=== PATIENT | female | born 1990 | race Caucasian/White ===

== ENCOUNTER 2016-07-27 06:08 | Day surgery (SDC) | payer MEDICAID ==
[2016-07-27] MEDS ORDERED: LACTATED RINGERS 1,000 ML ONE (06:54)
[2016-07-27] MEDS ORDERED: ceFAZolin SODIUM 1 GM VIAL ONE (06:55)
[2016-07-27] MEDS ORDERED: SODIUM CHL 0.9% 100ML MINI-BAG 100 ML IVPB ONE (06:55)
[2016-07-27] MEDS ORDERED: METOCLOPRAMIDE HCL INJ 10 MG/2 ML VIAL ONE (07:00)
[2016-07-27] MEDS ORDERED: PROPOFOL 200 MG/20 ML VIAL IV ONE (07:00)
[2016-07-27] MEDS ORDERED: BUPIVACAINE 0.25% W/EPI 50 ML VIAL INJ ONE (07:24)
[2016-07-27] MEDS ORDERED: fentaNYL CITRATE INJ 50 MCG/ML AMP ONE (07:48)
[2016-07-27] MEDS ORDERED: LIDOCAINE 2 % GEL 5 ML TUBE TOP ONE (07:49)
[2016-07-27 10:59] VITALS: O2SAT 97
[2016-07-27] MEDS ORDERED: HYDROcodone 5MG/APAP 325MG 1 EA TAB ONE (11:00)
--- NOTE | 2016-07-27 11:17 | OP ---
DATE OF PROCEDURE: 07/27/16 PREOPERATIVE DIAGNOSIS: 1. Umbilical hernia, reducible. POSTOPERATIVE DIAGNOSIS: 1. Umbilical hernia, reducible, with a ventral hernia, also reducible. PROCEDURE: 1. Repair of ventral and umbilical hernia with Surgimesh Onlay graft. SURGEON: Rubens Simons MD. ORACLE APPLICATION CONSULTANT: None. ANESTHESIA: General laryngeal mask anesthesia and local infiltration of 0.25% Marcaine with epinephrine. INDICATION: The patient is a 26-year-old female who was found to have a tender mass at her umbilicus. After the risks, benefits and alternatives to repair were discussed, the patient was brought to the Surgical Suite today for hernia repair under general anesthesia. FINDINGS: The patient had approximately 1 cm umbilical defect with a small amount of omentum within it. However, approximately 1.5 cm above that, she had a 1.5 by 1 cm hernia in the midline also with omentum in it. The two defects were connected and repaired as a single unit approximately 4.5 cm in length. PROCEDURE: After adequate general laryngeal mask anesthesia was obtained, the patient was prepped and draped in the usual sterile manner. At this point, a surgical time-out was taken. An infraumbilical incision was made first with infiltration of anesthesia, then with a sharp knife. Dissection was carried down through the skin and subcutaneous tissue to the midline fascia using electrocautery and blunt dissection. The umbilicus was dissected free circumferentially. It was then transected at the neck at the level of the fascia. The omentum was reduced and when this was done, the subcutaneous fat circumferentially was dissected free to allow sewing of the mesh Onlay graft. With the superior dissection, the other hernia was identified. It was likewise reduced below the level of the fascia. When this was done, a hemostat was passed from under the fascia from the ventral hernia to the umbilical hernia and over this. Electrocautery was used to divide the fascia. When this was done, the defect was closed with a running #1 PDS suture from above and below. When this was tightened and tied, the wound was irrigated with saline. Hemostasis was noted to be adequate. The fat was then dissected free circumferentially to allow the placement of a 10 cm by 5 cm oval Onlay Surgimesh graft. It was placed and then sutured down using interrupted 2-0 Prolene and 2-0 Vicryl sutures. When this was done, again, the wound was irrigated with saline. Hemostasis was noted to be adequate. The umbilicus was then sutured down using a 2-0 Prolene [id number] suture. This was sutured down to the fascia and the graft. When this was done, the wound was gain irrigated with saline. A 50 mm round MARCIN drain was then placed into the wound from below. It was sutured in place with a 3-0 Nylon suture. The subcutaneous was then reapproximated with interrupted 3-0 Vicryl sutures. Skin edges were approximated with skin stapler. Sterile pressure dressing was applied. Abdominal binder was applied. The patient was awakened and taken to the Recovery Room in stable condition. Estimated blood loss was approximately 25 to 50 mL. All sponge, needle and instrument counts were correct. #[id number] [facility]
[2016-07-27 11:37] VITALS: BP 116/72; TEMP 99.9
[2016-07-27] MEDS ORDERED: ONDANSETRON INJ 4 MG/2 ML VIAL ONE (11:57)
== END 2016-07-27 12:10 | disposition home or self-care (01) ==
LOC: AMB 06:08
PROVIDERS: ATTEND Surgery
DX: K42.9 Umbilical hernia without obstruction or gangrene (principal); K43.9 Ventral hernia without obstruction or gangrene
CPT/HCPCS: 00830; 49560; 49568; 49585; 80048; 81025; 85025; C1781; J0690; J2405; J2765; J3010; J3490; J7050; J7120

== ENCOUNTER → 2018-01-22 | Outpatient (CLI) | payer MEDICAID | LOC: YCFC.O 14:34 | DX: R63.5 Abnormal weight gain (principal); R53.83 Other fatigue ==

== ENCOUNTER → 2018-09-02 | Outpatient (CLI) | payer MEDICAID, OTHER | LOC: SL 19:17 | PROVIDERS: ATTEND Nurse Practitioner Family | DX: E66.9 Obesity, unspecified (principal); R06.83 Snoring; R53.83 Other fatigue ==

== ENCOUNTER → 2018-09-09 | Outpatient (CLI) | payer OTHER | LOC: SL 19:18 | PROVIDERS: ATTEND Nurse Practitioner Family | DX: R06.83 Snoring (principal); E66.9 Obesity, unspecified; R53.83 Other fatigue ==

== ENCOUNTER 2018-10-05 14:52 | Emergency (ER) | payer OTHER ==
[2018-10-05 15:23] VITALS: O2SAT 100
--- NOTE | 2018-10-05 15:38 | ED.PDOC ---
History of Present Illness - General Chief Complaint: Abdominal Pain Time Seen by Provider: 10/05/18 15:32 Source: patient Exam Limitations: no limitations - History of Present Illness Initial Comments: Patient presents with abdominal pain for 4 days. It is umbilical and LUQ with radiation to the back. It is constant and aching. It gets worse just after eating. Denies previous episodes. She has had associated nausea and some diarrhea. Last BM was this morning. Las meal 2 hours ago. She has had a mesh hernia repair, BTL, and hysterectomy. No other complaints. Timing/Duration: other - 4 days Severity: moderate Improving Factors: rest Worsening Factors: eating Associated Symptoms: other - see HPI Allergies/Adverse Reactions: Allergies NO KNOWN ALLERGY Allergy (Verified 02/10/16 13:29) Home Medications: Ambulatory Orders Ketorolac Tromethamine [Toradol Tabs] 10 mg PO Q6HRS PRN #14 tab 10/05/18 Review of Systems - Review of Systems Constitutional: States: no symptoms reported EENTM: States: no symptoms reported Respiratory: States: no symptoms reported Cardiology: States: no symptoms reported Gastrointestinal/Abdominal: States: see HPI Genitourinary: States: no symptoms reported Musculoskeletal: States: no symptoms reported Skin: States: no symptoms reported Neurological: States: no symptoms reported Endocrine: States: no symptoms reported Hematologic/Lymphatic: States: no symptoms reported Past Medical History (General) - Patient Medical History Hx Asthma: Yes Hx Congestive Heart Failure: No Hx Diabetes: No Hx Renal Disease: No Hx Cancer: Yes - cervical Hx MRSA: No - Vaccination History Hx Tetanus, Diphtheria Vaccination: No Hx Influenza Vaccination: No Hx Pneumococcal Vaccination: No - Social History Hx Tobacco Use: Yes Hx Alcohol Use: No Hx Substance Use: No - Female History Hx Last Menstrual Period: 12/18/15 Patient : No Expected Date of Delivery:: 02/07/14 Family Medical History - Family History Mother Name: Holley Mehta Age (years): 50 Living Status: Still Living Hx Family Asthma: No Hx Family Congestive Heart Failure: Yes Hx Family Hypertension: No Hx Family Stroke: No Hx Family Diabetes: Yes Hx Family Cancer: No Hx Family;Other: Kidney failure- grandmother Father Name: Angelo Mehta Jr. Age (years): 57 Living Status: Still Living Hx Family Asthma: No Hx Family Congestive Heart Failure: Yes Hx Family Hypertension: Yes Hx Family Stroke: No Hx Family Diabetes: No Hx Family Cancer: Yes Brother Name: Rashad bustillos; Abdoulaye mehta; Constantino Mehta Age (years): 35; 26; 34 Living Status: Still Living Hx Family Asthma: No Hx Family Congestive Heart Failure: No Hx Family Hypertension: No Hx Family Stroke: No Hx Family Diabetes: No Hx Family Cancer: No Maternal Grandparents Name: Radha Bush Age (years): 66 Living Status: Age at (years of age): 66 Cause of : Kidney failure Hx Family Asthma: No Hx Family Congestive Heart Failure: Yes Hx Family Hypertension: Yes Hx Family Stroke: No Hx Family Diabetes: No Hx Family Cancer: No Physical Exam - Physical Exam General Appearance: Alert Eye Exam: bilateral normal Ears, Nose, Throat: normal ENT inspection Neck: non-tender, full range of motion, supple Respiratory: lungs clear, normal breath sounds Cardiovascular/Chest: normal peripheral pulses, regular rate, rhythm Gastrointestinal/Abdominal: normal bowel sounds, soft, tenderness - TTP over umbilical area and RUQ. Negative Jin's sign. Back Exam: normal inspection, no CVA tenderness Extremity: normal range of motion, non-tender, normal inspection Neurologic: no motor/sensory deficits, alert, normal mood/affect, oriented x 3 Skin Exam: normal color Lymphatic: no adenopathy Progress - Progress Progress: 10/05/18 17:52 Laboratory Tests 10/05/18 10/05/18 10/05/18 15:44 15:44 15:44 WBC 7.7 RBC 4.20 Hgb 13.1 Hct 38.9 MCV 92.7 MCH 31.3 H MCHC 33.7 RDW 12.4 Plt Count 417 H MPV 7.7 Absolute Neuts (auto) 4.70 Absolute Lymphs (auto) 1.90 Absolute Monos (auto) 0.50 Absolute Eos (auto) 0.50 H Absolute Basos (auto) 0.00 Neutrophils % 61.3 Lymphocytes % 25.1 Monocytes % 6.2 Eosinophils % 6.8 H Basophils % 0.6 Sodium 138 Potassium 3.8 Chloride 103 Carbon Dioxide 26 Anion Gap 12.8 BUN 9 Creatinine 0.43 L BUN/Creatinine Ratio 20.9 H Random Glucose 106 H Serum Osmolality 274.8 L Calcium 8.9 Total Bilirubin 0.3 AST 21 ALT 23 Alkaline Phosphatase 142 H Serum Total Protein 7.2 Albumin 3.9 Globulin 3.3 Albumin/Globulin Ratio 1.[address] ab/pelvis was negative for acute disease. Likely is biliary colic. Instructed patient to follow up with Dr. Simons next week.. Toradol 30 mg IM x one given in the E.R. Care instructions given. E.R. warnings given. Questions were elicited and answered. Patient voiced understanding and agreement with the plan Departure - Departure Clinical Impression: Biliary colic Disposition: Discharge to Home or Self Care Condition: Good Departure Forms: ED Discharge - Pt. Copy, Patient Portal Self Enrollment Instructions: DI for Abdominal Pain-Adult Diet: low fat, low cholesterol Activity: increase activity as tolerated Referrals: Edilia Heck NP [Primary Care Provider] - 1-2 Weeks Prescriptions: Ketorolac Tromethamine [Toradol Tabs] 10 mg PO Q6HRS PRN #14 tab PRN Reason: Pain Home Medications: Ambulatory Orders Ketorolac Tromethamine [Toradol Tabs] 10 mg PO Q6HRS PRN #14 tab 10/05/18 Additional Instructions: Eat low fat meals. Take medication as prescribed. Call Dr. Simons on Monday and get scheduled for further evaluation of your gall bladder.
--- NOTE | 2018-10-05 17:36 | CT ---
EXAM: Abdomen/Pelvis w/Contrast CLINICAL INDICATION: Abdominal pain. COMPARISON: 01/04/2016 TECHNIQUE: The CT scan was done using contiguous axial 5 mm postcontrast sections through the abdomen and pelvis including IV contrast. This exam was performed according to our departmental dose-optimization program, which includes automated exposure control, adjustment of the mA and/or kV according to patient size and/or use of iterative reconstruction technique. FINDINGS: The visualized lung bases are clear. There is redemonstration of a low-density lesion with peripheral nodular enhancement, consistent with an hemangioma in the posterior right lobe of the liver unchanged from the previous study measuring 2.0 x 2.5 cm. The liver is otherwise unremarkable. The adrenal glands, kidneys, spleen, and pancreas as well as the gallbladder are unremarkable. The aorta is normal in caliber. There are no dilated loops of small bowel. There is no free air, free fluid, or abscess. The appendix is normal, seen best on coronal images. The uterus is surgically absent. IMPRESSION: No evidence of an acute intra-abdominal process. Electronically signed by: Inderjit Lopez MD 10/05/2018 5:33 PM CDT
[2018-10-05] MEDS ORDERED: KETOROLAC TROMETHAMINE INJ 30 MG/ML VIAL IM ONE (17:52)
[2018-10-05 18:09] VITALS: BP 136/80; TEMP 97
== END 2018-10-05 18:17 | disposition home or self-care (01) ==
LOC: ER 14:52
DX: K80.20 Calculus of gallbladder without cholecystitis without obstruction (principal); J45.909 Unspecified asthma, uncomplicated; Z87.891 Personal history of nicotine dependence; Z85.41 Personal history of malignant neoplasm of cervix uteri; Z98.890 Other specified postprocedural states; Z87.19 Personal history of other diseases of the digestive system; Z90.710 Acquired absence of both cervix and uterus
CPT/HCPCS: 36415; 74177; 80053; 83690; 85025; J1885

== ENCOUNTER → 2018-10-11 | Outpatient (CLI) | payer OTHER ==
--- NOTE | 2018-10-11 12:36 | US ---
EXAM DESCRIPTION: Abdomen,Complete CLINICAL HISTORY: RT UPPER QUADRANT PAIN COMPARISON: Previous study February 10, 2016 ultrasound liver, previous CT abdomen October 05, 2018 TECHNIQUE: Complete abdominal ultrasound FINDINGS: Visualized portions of the pancreas are unremarkable. No peripancreatic fluid. Bowel gas obscures some areas. Normal caliber of the aorta. Normal appearance of the inferior vena cava. Focally echogenic lesion in the upper right lobe of the liver measures 2.3 cm consistent with benign cavernous hemangioma. Liver parenchyma is otherwise homogeneous in texture with normal echogenicity. No liver mass or intrahepatic bile duct dilatation. No liver surface irregularity. Normal appearance of hepatic veins and portal vein. Gallbladder appears normal with no intraluminal stones. No gallbladder wall thickening. Common bile duct is normal in caliber measuring 3.4 mm. The right kidney measures 9.8 cm in length. Normal renal cortical echogenicity. The renal cortical thickness appears normal. No right renal mass, shadowing stone or cyst. There is no hydronephrosis. Spleen is normal in size. No focal splenic lesion. The left kidney measures 10.9 cm in length. Normal renal cortical echogenicity. The renal cortical thickness appears normal. No left renal mass, shadowing stone or cyst. There is no hydronephrosis. IMPRESSION: Benign-appearing hyperechoic lesion in the upper right lobe of the liver 2.3 cm consistent with hemangioma. Normal sonographic appearance of the gallbladder and common bile duct. Electronically signed by: Noah Garcia MD 10/11/2018 12:33 PM CDT
== END ==
LOC: US 08:37
PROVIDERS: ATTEND Surgery
DX: R10.11 Right upper quadrant pain (principal)

== ENCOUNTER 2018-10-16 19:57 | Emergency (ER) | payer OTHER ==
[2018-10-16 20:14] VITALS: O2SAT 99
[2018-10-16] MEDS ORDERED: KETOROLAC TROMETHAMINE INJ 60 MG/2 ML VIAL IM ONE (20:22)
--- NOTE | 2018-10-16 20:25 | ED.PDOC ---
History of Present Illness - General Chief Complaint: GI Problem Stated Complaint: "gallbladder attack" Time Seen by Provider: 10/16/18 20:20 Information Source: patient Additional Information: SHE ATE SOME CHICKEN IN [place] AND NOW HAS RUQ PAIN, DENIES FEVER AND DENIES VOMITING. PAIN 12/31. SHE WAS HERE SEVERAL DAYS AGO AND A BEDSIDE GB SONO REVEALED GASSTONES. SHE WAS REFERRED TO DR. NICHOLS WHO ORDERED A DEPARTAMENTAL GB SONO. THIS WAS DONE LAST MONDAY AND REPORTED A NEGATIVE BY RADIOLOGIST. SHE STILL CONTINUES TO HAVE BILIARY COLIC. - History of Present Illness Abdominal Pain Onset Location: RUQ Pain Radiation: no radiation Quality: moderate Timing/Duration: 4-6 hours Improving Factors: nothing Worsening Factors: nothing Associated Symptoms: back pain Review of Systems - Review of Systems Constitutional: States: no symptoms reported EENTM: States: no symptoms reported Respiratory: States: no symptoms reported Cardiology: States: no symptoms reported Gastrointestinal/Abdominal: States: abdominal pain Musculoskeletal: States: no symptoms reported Skin: States: no symptoms reported Neurological: States: no symptoms reported Endocrine: States: no symptoms reported Hematologic/Lymphatic: States: no symptoms reported Past Medical History (General) - Patient Medical History Hx Stroke: No Hx Asthma: Yes Hx Congestive Heart Failure: No Hx Thyroid Disease: Yes Hx Diabetes: No Hx Renal Disease: No Hx Cancer: Yes - cervical Hx MRSA: No Surgical History: Hysterectomy, other - Vaccination History Hx Tetanus, Diphtheria Vaccination: No Hx Influenza Vaccination: No Hx Pneumococcal Vaccination: No - Social History Hx Tobacco Use: Yes Hx Alcohol Use: No Hx Substance Use: No - Female History Hx Last Menstrual Period: 12/18/15 Patient : No Expected Date of Delivery:: 02/07/14 Family Medical History - Family History Mother Name: Holley Mehta Age (years): 50 Living Status: Still Living Hx Family Asthma: No Hx Family Congestive Heart Failure: Yes Hx Family Hypertension: No Hx Family Stroke: No Hx Family Diabetes: Yes Hx Family Cancer: No Hx Family;Other: Kidney failure- grandmother Father Name: Angelo Wilsonmercedez Mak Age (years): 57 Living Status: Still Living Hx Family Asthma: No Hx Family Congestive Heart Failure: Yes Hx Family Hypertension: Yes Hx Family Stroke: No Hx Family Diabetes: No Hx Family Cancer: Yes Brother Name: Rashad bustillos; Abdoulaye mehta; Constantino Mehta Age (years): 35; 26; 34 Living Status: Still Living Hx Family Asthma: No Hx Family Congestive Heart Failure: No Hx Family Hypertension: No Hx Family Stroke: No Hx Family Diabetes: No Hx Family Cancer: No Maternal Grandparents Name: Radha Bush Age (years): 66 Living Status: Age at (years of age): 66 Cause of : Kidney failure Hx Family Asthma: No Hx Family Congestive Heart Failure: Yes Hx Family Hypertension: Yes Hx Family Stroke: No Hx Family Diabetes: No Hx Family Cancer: No Physical Exam - Physical Exam General Appearance: Alert, Other - MILD TO MODERATE DISTRESS. Eyes, Ears, Nose, Throat Exam: PERRL/EOMI, normal ENT inspection Neck: non-tender, full range of motion, supple Respiratory: chest non-tender, lungs clear, normal breath sounds, no respiratory distress Cardiovascular/Chest: normal peripheral pulses, regular rate, rhythm, no edema Peripheral Pulses: No deficit Gastrointestinal/Abdominal: normal bowel sounds, other - THE ABDOMEN IS SOFT, NO GUARDING AND NO REBOUND TENDERNESS. NEGATIVE PEACE'S SIGN. THERE IS MILD TENDERNESS ON THE RUQ. LIVER A ND SPLEEN ARE NOT ENLARGED. Rectal Exam: deferred Back Exam: normal inspection Extremity: normal range of motion Skin Exam: normal color Lymphatic: no adenopathy Departure - Departure Clinical Impression: RUQ abdominal pain Time of Disposition: 20:28 Disposition: Discharge to Home or Self Care Condition: Good Departure Forms: ED Discharge - Pt. Copy, Patient Portal Self Enrollment Instructions: DI for Abdominal Pain-Adult Referrals: Edilia Heck NP [Primary Care Provider] - 1-2 Weeks Home Medications: Ambulatory Orders Ketorolac Tromethamine [Toradol Tabs] 10 mg PO Q6HRS PRN #14 tab 10/05/18 Additional Instructions: KEEP APPOINTMENT WITH DR. NICHOLS TOMORROW. YOU MIGHT BENEFIT BY HAVING A HIDA SCAN.
[2018-10-16 20:38] VITALS: BP 130/90; TEMP 97.9
== END 2018-10-16 20:38 | disposition home or self-care (01) ==
LOC: ER 19:57
DX: R10.11 Right upper quadrant pain (principal); J45.909 Unspecified asthma, uncomplicated; E07.9 Disorder of thyroid, unspecified; Z85.41 Personal history of malignant neoplasm of cervix uteri; Z87.891 Personal history of nicotine dependence; Z90.710 Acquired absence of both cervix and uterus

== ENCOUNTER 2018-11-12 18:22 | Emergency (ER) | payer OTHER, SELFPAY ==
[2018-11-12] MEDS ORDERED: ONDANSETRON INJ 4 MG/2 ML VIAL IV ONE (18:30)
[2018-11-12] MEDS ORDERED: KETOROLAC TROMETHAMINE INJ 30 MG/ML VIAL IV ONE (18:30)
[2018-11-12] MEDS ORDERED: SODIUM CHLORIDE 0.9% 1000ML 1,000 ML IVS PRN (18:30)
[2018-11-12] MEDS ORDERED: MORPHINE SULFATE INJ 10 MG/ML VIAL IV ONE (18:30)
[2018-11-12] MEDS ORDERED: SODIUM CHLORIDE 0.9% (FLUSH) 10 ML SYG IV PRN (18:30)
--- NOTE | 2018-11-12 18:34 | ED.PDOC ---
History of Present Illness - General Information Source: patient - History of Present Illness Initial Comments: PT PRESENTS WITH ONSET OF PROGRESSIVELY WORSENING LEFT FLANK PAIN THAT BEGAN YESTERDAY ASSOCIATED WITH NAUSEA. PT STATES THAT PAIN IS SHARP AND CONSTANT. PT DENIES, FEVER, CHILLS, VOMITING, DYSURIA, HEMATURIA. Abdominal Pain Onset Location: LUQ, LLQ Pain Radiation: groin Quality: severe, sharpness Timing/Duration: 7-24 hours Improving Factors: nothing Worsening Factors: nothing Associated Symptoms: nausea/vomiting <Nicolas Unger - Last Filed: 11/12/18 18:32> <Randy Nguyen - Last Filed: 11/12/18 21:30> - General Chief Complaint: Problem Stated Complaint: LEFT FLANK PAIN Time Seen by Provider: 11/12/18 18:30 Review of Systems - Review of Systems Constitutional: Denies: chills, fever EENTM: Denies: nose congestion, throat pain Respiratory: Denies: cough, short of breath Cardiology: Denies: chest pain, palpitations Gastrointestinal/Abdominal: States: see HPI, abdominal pain, nausea. Denies: diarrhea, vomiting Genitourinary: Denies: dysuria, frequency, hematuria Musculoskeletal: Denies: joint pain, joint swelling Skin: Denies: dryness, lesions Neurological: Denies: headache, numbness Endocrine: States: no symptoms reported Hematologic/Lymphatic: States: no symptoms reported <Nicolas Unger - Last Filed: 11/12/18 18:32> Past Medical History (General) - Patient Medical History Hx Stroke: No Hx Asthma: Yes Hx Congestive Heart Failure: No Hx Thyroid Disease: Yes Hx Diabetes: No Hx Renal Disease: No Hx Cancer: Yes - cervical Hx MRSA: No - Vaccination History Hx Tetanus, Diphtheria Vaccination: No Hx Influenza Vaccination: No Hx Pneumococcal Vaccination: No - Social History Hx Tobacco Use: Yes Hx Alcohol Use: No Hx Substance Use: No - Female History Hx Last Menstrual Period: 12/18/15 Patient : No Expected Date of Delivery:: 02/07/14 <Nicolas Unger - Last Filed: 11/12/18 18:32> Family Medical History - Family History Mother Name: Holley Mehta Age (years): 50 Living Status: Still Living Hx Family Asthma: No Hx Family Congestive Heart Failure: Yes Hx Family Hypertension: No Hx Family Stroke: No Hx Family Diabetes: Yes Hx Family Cancer: No Hx Family;Other: Kidney failure- grandmother Father Name: Angelo Mehta Jr. Age (years): 57 Living Status: Still Living Hx Family Asthma: No Hx Family Congestive Heart Failure: Yes Hx Family Hypertension: Yes Hx Family Stroke: No Hx Family Diabetes: No Hx Family Cancer: Yes Brother Name: Rahsad bustillos; Abdoulaye mehat; Constantino Mehta Age (years): 35; 26; 34 Living Status: Still Living Hx Family Asthma: No Hx Family Congestive Heart Failure: No Hx Family Hypertension: No Hx Family Stroke: No Hx Family Diabetes: No Hx Family Cancer: No Maternal Grandparents Name: Radha Bush Age (years): 66 Living Status: Age at (years of age): 66 Cause of : Kidney failure Hx Family Asthma: No Hx Family Congestive Heart Failure: Yes Hx Family Hypertension: Yes Hx Family Stroke: No Hx Family Diabetes: No Hx Family Cancer: No <Nicolas Unger H - Last Filed: 11/12/18 18:32> Physical Exam - Physical Exam General Appearance: Anxious, Obvious distress, Obese, Well Developed, Well Groomed, Well Hydrated Eyes, Ears, Nose, Throat Exam: normal ENT inspection Neck: normal inspection Respiratory: no respiratory distress, no accessory muscle use Cardiovascular/Chest: regular rate, rhythm, no murmur Gastrointestinal/Abdominal: soft, tenderness - LUQ, LLQ Back Exam: CVA tenderness (L) Extremity: non-tender, normal inspection Neurologic: alert, normal mood/affect, oriented x 3 Skin Exam: normal color, warm/dry Special Observations: Other - TEARFUL <Nicolas Unger H - Last Filed: 11/12/18 18:32> Progress - Progress Progress: 11/12/18 21:19 Laboratory Tests 11/12/18 11/12/18 11/12/18 18:45 18:45 20:36 WBC 8.2 RBC 4.37 Hgb 13.7 Hct 40.7 MCV 93.2 MCH 31.4 H MCHC 33.7 RDW 12.9 Plt Count 323 MPV 8.6 Absolute Neuts (auto) 5.80 Absolute Lymphs (auto) 1.60 Absolute Monos (auto) 0.50 Absolute Eos (auto) 0.20 Absolute Basos (auto) 0.00 Neutrophils % 71.2 Lymphocytes % 20.2 Monocytes % 6.1 Eosinophils % 2.0 Basophils % 0.5 Sodium 139 Potassium 3.2 L Chloride 102 Carbon Dioxide 25 Anion Gap 15.2 BUN 13 Creatinine 0.59 L BUN/Creatinine Ratio 22.0 H Random Glucose 103 Serum Osmolality 277.9 Calcium 9.6 Urine Color Yellow Urine Appearance Clear Urine pH 6.0 Ur Specific [place] 1.020 Urine Protein 30 Urine Glucose (UA) Negative Urine Ketones 40 H Urine Blood Large H Urine Nitrite Negative Urine Bilirubin Negative Urine Urobilinogen 0.2 Ur Leukocyte Esterase Negative Urine RBC 1-3 Urine WBC 0 Ur Epithelial Cells 0-1 Urine Bacteria 0 PT FEELING MUCH BETTER, PAIN IS GONE, URINATING WITH NO PROBLEMS. WANTS TO GO HOME. ADVISED TO INCREASE ORAL FLUIDS, STRAIN URINE, EAT BANANAS TWICE A DAY. 11/12/18 21:23 - EKG/XRAY/CT CT Interpretation Call Back: No - L MILD HYDRONEPHROSIS, STONE IN THE BLADDER, R NON OBSTRUCT NEPHROLITHIASIS <Randy Nguyen - Last Filed: 11/12/18 21:30> Departure <Nicolas Unger - Last Filed: 11/12/18 18:32> - Departure Diet: resume usual diet <Randy Nguyen - Last Filed: 11/12/18 21:30> - Departure Clinical Impression: Urolithiasis, Hypokalemia Disposition: Discharge to Home or Self Care Condition: Good Departure Forms: ED Discharge - Pt. Copy, Patient Portal Self Enrollment Instructions: DI for Kidney Stones Referrals: Edilia Heck NP [Primary Care Provider] - 1-2 Weeks Prescriptions: Acetaminophen W/ Codeine [Tylenol w/Codeine 300-30 mg] 1 tab PO Q4HR PRN #10 tab PRN Reason: Pain Score Of 7-10 Home Medications: Ambulatory Orders Acetaminophen W/ Codeine [Tylenol w/Codeine 300-30 mg] 1 tab PO Q4HR PRN #10 tab 11/12/18 Docusate Sodium [Colace Cap] 100 mg PO DAILY 11/12/18 Phentermine HCl 37.5 mg PO DAILY 11/12/18 Thyroid [Sodus Thyroid] 90 mg PO DAILY 11/12/18
--- NOTE | 2018-11-12 19:23 | CT ---
EXAM: Abdoment/Pelvis w/o Contrast CLINICAL INDICATION: Abdominal pain. COMPARISON: 10/05/2018 TECHNIQUE: The CT scan was done using contiguous axial 2.5 mm noncontrast sections through the abdomen and pelvis. This exam was performed according to our departmental dose-optimization program, which includes automated exposure control, adjustment of the mA and/or kV according to patient size and/or use of iterative reconstruction technique. FINDINGS: The visualized portions of the lung bases are clear. The liver, gallbladder, adrenal glands, spleen, and pancreas have a normal noncontrast CT appearance. There is a 1 mm nonobstructing stone in the lower pole of the right kidney. There is mild hydronephrosis of the left kidney without any visible ureteral stone. However, a small stone is noted along the posterior aspect of the urinary bladder, series 2, image 154 possibly representing a recently extruded stone measuring 3.3 x 3.0 mm. No dilated loops of small bowel are identified. There is no free air, free fluid, or abscess. IMPRESSION: 1. Mild hydronephrosis of the left kidney. Tiny stone in the bladder likely representing a recently extruded left ureteral stone. 2. Otherwise, no acute intra-abdominal process. 3. Small nonobstructing stone in the right kidney. Electronically signed by: Inderjit Lopez MD 11/12/2018 7:20 PM CDT
[2018-11-12] MEDS ORDERED: POTASSIUM CHLORIDE 20 MEQ TAB PO ONE (21:18)
[2018-11-12 21:19] VITALS: TEMP 98.3
[2018-11-12 21:46] VITALS: BP 127/79; O2SAT 99
== END 2018-11-12 21:42 | disposition home or self-care (01) ==
LOC: ER 18:22
DX: N13.2 Hydronephrosis with renal and ureteral calculous obstruction (principal); E87.6 Hypokalemia; J45.909 Unspecified asthma, uncomplicated; E07.9 Disorder of thyroid, unspecified; Z87.891 Personal history of nicotine dependence; Z85.41 Personal history of malignant neoplasm of cervix uteri

== ENCOUNTER 2018-11-25 10:56 | Emergency (ER) | payer OTHER ==
--- NOTE | 2018-11-25 11:15 | ED.PDOC ---
History of Present Illness - General Chief Complaint: ENT Problem Stated Complaint: Pt states 10 day hx of sore throat Time Seen by Provider: 11/25/18 11:12 Source: patient - History of Present Illness Initial Comments: patient comes in today with 10 day history of sore throat. When asked when she chose today to come and she states it just wasn't getting any better but did not have a sudden worsening. No shortness of breath but lots of pain and now right ear discomfort. Some chills no fever. No nausea or vomiting. No cough or cold symptoms. Patient is otherwise healthy although she does have hypothyroidism and does take Gonzales Thyroid. Timing/Duration: gradual Severity: moderate EENT Location: throat Improving Factors: nothing Worsening Factors: nothing Associated Symptoms: sore throat, other - ear pain Allergies/Adverse Reactions: Allergies NO KNOWN ALLERGY Allergy (Verified 11/25/18 11:34) Home Medications: Ambulatory Orders Thyroid [Gonzales Thyroid] 90 mg PO DAILY 11/12/18 Cefdinir [Omnicef] 300 mg PO BID #14 cap 11/25/18 Review of Systems - Review of Systems Constitutional: States: chills, fever. Denies: diaphoresis, weakness EENTM: States: ear pain, throat pain. Denies: nose congestion Respiratory: States: no symptoms reported. Denies: cough, short of breath Cardiology: States: no symptoms reported. Denies: chest pain, palpitations Gastrointestinal/Abdominal: States: no symptoms reported. Denies: abdominal pain, diarrhea, nausea, vomiting Past Medical History (General) - Patient Medical History Hx Stroke: No Hx Asthma: Yes Hx Congestive Heart Failure: No Hx Thyroid Disease: Yes Hx Diabetes: No Hx Renal Disease: No Hx Cancer: Yes - cervical Hx MRSA: No - Vaccination History Hx Tetanus, Diphtheria Vaccination: No Hx Influenza Vaccination: No Hx Pneumococcal Vaccination: No - Social History Hx Tobacco Use: Yes Hx Alcohol Use: No Hx Substance Use: No - Female History Hx Last Menstrual Period: 12/18/15 Patient : No Expected Date of Delivery:: 02/07/14 Family Medical History - Family History Mother Name: Holley Mehta Age (years): 50 Living Status: Still Living Hx Family Asthma: No Hx Family Congestive Heart Failure: Yes Hx Family Hypertension: No Hx Family Stroke: No Hx Family Diabetes: Yes Hx Family Cancer: No Hx Family;Other: Kidney failure- grandmother Father Name: Angelo Mehta Jr. Age (years): 57 Living Status: Still Living Hx Family Asthma: No Hx Family Congestive Heart Failure: Yes Hx Family Hypertension: Yes Hx Family Stroke: No Hx Family Diabetes: No Hx Family Cancer: Yes Brother Name: Rashad bustillos; Abdoulaye mehta; Constantino Mehta Age (years): 35; 26; 34 Living Status: Still Living Hx Family Asthma: No Hx Family Congestive Heart Failure: No Hx Family Hypertension: No Hx Family Stroke: No Hx Family Diabetes: No Hx Family Cancer: No Maternal Grandparents Name: Radha Bush Age (years): 66 Living Status: Age at (years of age): 66 Cause of : Kidney failure Hx Family Asthma: No Hx Family Congestive Heart Failure: Yes Hx Family Hypertension: Yes Hx Family Stroke: No Hx Family Diabetes: No Hx Family Cancer: No Physical Exam - Physical Exam General Appearance: Alert, Comfortable, No apparent distress Eye Exam: bilateral normal Ear Exam: bilateral ear: TM normal Nasal Exam: normal inspection Throat Exam: pharynx swelling - with erythema no exudate , tonsillar swelling Neck: lymphadenopathy (R), lymphadenopathy (L) Cardiovascular/Respiratory: regular rate, rhythm, no M/R/G, normal peripheral pulses, normal breath sounds Abdominal Exam: non-tender, no organomegaly Neurologic: alert, oriented x 3 Skin Exam: normal color Progress - Results/Orders Results/Orders: 11/25/18 11:05 STREP A SCREEN CULTURE Stat Laboratory Results Group A Strep Rapid Negative (NEGATIVE) 11/25/18 11:05 Departure - Departure Clinical Impression: Tonsillitis Disposition: Discharge to Home or Self Care Condition: Good Departure Forms: ED Discharge - Pt. Copy, Patient Portal Self Enrollment Instructions: DI for Ear Pain-Adult Referrals: Edilia Heck NP [Primary Care Provider] - 1-2 Weeks Prescriptions: Cefdinir [Omnicef] 300 mg PO BID #14 cap Home Medications: Ambulatory Orders Thyroid [Gonzales Thyroid] 90 mg PO DAILY 11/12/18 Cefdinir [Omnicef] 300 mg PO BID #14 cap 11/25/18 Additional Instructions: return to ER for shortness of breath, inability to swallow. Follow up in clinic if not improving with antibiotics in 4 days.
[2018-11-25 11:18] VITALS: O2SAT 100
[2018-11-25 12:06] VITALS: BP 146/74; TEMP 98.6
== END 2018-11-25 12:05 | disposition home or self-care (01) ==
LOC: ER 10:56
DX: J03.90 Acute tonsillitis, unspecified (principal); E03.9 Hypothyroidism, unspecified; J45.909 Unspecified asthma, uncomplicated; Z79.899 Other long term (current) drug therapy; Z85.41 Personal history of malignant neoplasm of cervix uteri; Z87.891 Personal history of nicotine dependence

== ENCOUNTER → 2018-12-26 | Outpatient (CLI) | payer OTHER ==
--- NOTE | 2018-12-27 14:14 | RAD ---
EXAM DESCRIPTION: IVP Intravenous Pyelogram CLINICAL HISTORY: 28 years Female, GROSS HEMATURIA R31.0 COMPARISON: None. TECHNIQUE: Medical Customer Service Representative film was obtained. Thereafter, intravenous contrast was administered, nonionic with usual adult dose. Sequential KUB x-ray images of abdomen were obtained to include the kidneys and ureters and bladder. A postvoid film was obtained. FINDINGS: Medical Customer Service Representative film shows punctate density overlying the lateral right kidney not thought likely to represent a stone. Film artifact is favored. Calcification in the left pelvis is consistent with a phlebolith. After IV contrast, normal nephrograms are noted with left kidney slightly longer than the right. Right renal length 3 1/2 vertebral bodies is 11.4 cm. Left renal length for vertebral bodies is 12.4 cm. Five-minute image shows normal contrast in the urinary collecting systems. No deformity of the calyces were filling defects in the renal pelves or ureters. 10 minute film shows normal distal ureters and normal contrast accumulating in the bladder. Normal osseous structures. Unremarkable bowel gas pattern. No visceromegaly or mass. Oblique images are obtained with no evidence of a renal mass on either side. 15 minute and postvoid images show normal findings. Postvoid images show emptying of the upper collecting systems with near complete emptying of the bladder. IMPRESSION: Normal excretory urogram. Electronically signed by: Naoh Garcia MD 12/27/2018 2:12 PM CDT
== END ==
LOC: RAD 15:05
PROVIDERS: ATTEND Urology
DX: N20.0 Calculus of kidney (principal)

== ENCOUNTER → 2020-05-02 | Outpatient (CLI) | payer OTHER | LOC: YCFC.O 11:25 | PROVIDERS: ATTEND Family Medicine | DX: E03.9 Hypothyroidism, unspecified (principal) ==